=== PATIENT | male | born 2000 | race Hispanic/Latino ===

== ENCOUNTER 2023-11-29 12:59 | Emergency (ER) | payer SELFPAY ==
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
[2023-11-29 13:32] LABS: Absolute Lymphocytes (CBC) 1.3 K/uL (0.7-4.9); Absolute Monocytes 0.5 K/uL (0.1-1.3); Absolute Neutrophil 8.4 K/uL (1.8-8.0); Basophils % 0.4 % (0-1.3); Eosinophils % 0.4 % (0-4.4); Hematocrit 47.9 % (39.6-49.0); Hemoglobin 16.4 g/dL (13.6-17.9); Lymphocytes % 12.4 % (15.3-44.8); MCH 30.7 pg (27.0-35.0); MCHC 34.2 g/dL (32.0-36.0); MCV 89.6 fL (80-100); MPV 6.7 fL (7.6-11.3); Monocytes % 4.7 % (3.3-12.3); Neutrophils % 82.1 % (41.7-73.7); Nucleated Red Blood Cells % 0.1 % (0-0); Platelets 335 thou/uL (152-406); RBC Red Blood Cell Count 5.34 M/uL (4.33-5.43); Red Cell Distribution Width 12.7 % (12.1-15.2)
[2023-11-29 13:39] LABS: PT Prothrombin Time 12.1 SECONDS (9.4-12.5); PTT, Activated Partial Thromb 41.4 SECONDS (24.3-36.9); Protime INR 1.08
[2023-11-29 14:02] LABS: Barbiturates NEGATIVE (NEGATIVE); Benzodiazepines NEGATIVE (NEGATIVE); Cocaine NEGATIVE (NEGATIVE); METHAMPHETAM NEGATIVE (NEGATIVE); Methadone NEGATIVE (NEGATIVE); Opiates NEGATIVE (NEGATIVE); Phencyclidine NEGATIVE (NEGATIVE); THC Cannibis NEGATIVE (NEGATIVE)
[2023-11-29 14:02] LABS: ALT/SGPT 56 U/L (16-61); AST/SGOT 30 U/L (15-37); Albumin 4.2 g/dL (3.4-5.0); Alkaline Phosphatase 97 U/L (45-117); Anion Gap 8.2 mEq/L (5.0-15.0); BUN Blood Urea Nitrogen 12 mg/dL (7-18); Bicarbonate 28 mEq/L (21-32); Bilirubin Direct 0.2 mg/dL (0-0.2); Bilirubin Indirect, Calculated 0.4 mg/dL (0.2-0.8); Bilirubin Total 0.6 mg/dL (0.2-1.0); Globulin 4.1 g/dL (2.3-3.5); Glomerular Filtration Rate 118 ml/min (=/>90); Glucose Level 78 mg/dL (74-106); Potassium 4.2 mEq/L (3.5-5.1); Protein, Total 8.3 g/dL (6.4-8.2); Sodium Level 137 mEq/L (136-145)
--- NOTE | 2023-11-29 15:13 | EDPHYS ---
Physician Documentation [facility] Name: Carson Munson Age: 23 yrs Sex: Male : 2000 Arrival Date: 11/29/2023 Time: 12:59 Bed 20 Private MD: ED Physician Quinn Thomas HPI: 11/28 13:52 This 23 yrs old Male presents to ER via EMS with complaints of Mental kb Evaluation. 13:52 Patient is a 23-year-old male who presents for racing thoughts, paranoia and sense of kb hopelessness that started yesterday. States he is on Prozac to manage the symptoms and it works unless his father is present. States his father is a trigger for his symptoms. States he ran away yesterday and stayed in an apartment that he should not have been. States PD found him trespassing at the apartment, called his dad and his symptoms progressed so the officers recommended he come to the ER for mental evaluation. Patient denies any suicidal or homicidal ideations. Patient request inpatient treatment because he just wants to get better. EMS reports pt stated "i'd rather than go with my dad" on scene.. Historical: - Allergies: 13:09 No Known Allergies; iw - Home Meds: 13:09 Prozac Oral daily [Active]; iw - Immunization history:: Adult Immunizations up to date. - Infectious Disease History:: Denies. - Social history:: Smoking status: Patient/guardian denies using. ROS: 13:54 Constitutional: As per HPI kb Exam: 13:54 Constitutional: This is a well developed, well nourished patient who is awake, alert, kb and in no acute distress. Head/Face: Normocephalic, atraumatic. ENT: Moist Mucous membranes Cardiovascular: Regular rate Respiratory: Respirations even and unlabored. No increased work of breathing. Talking in full sentences Abdomen/GI: Soft, non-tender. No distention Skin: Warm, dry with normal turgor. Normal color. MS/ Extremity: Pulses equal, no cyanosis. Neurovascular intact. Full, normal range of motion. Neuro: Awake and alert, GCS 15, oriented to person, place, time, and situation. Moves all extremities. Normal gait. 13:54 Psych: Behavior/mood is cooperative, anxious, Affect is animated, Oriented to person, place, time, Patient has no thoughts/intents to harm self or others. 14:31 ECG was reviewed by the Attending Physician. kb Vital Signs: 13:07 BP 134 / 78; Pulse 104; Resp 16; Temp 98.2(TE); Pulse Ox 100% on R/A; iw 14:22 BP 122 / 78; Pulse 84; Resp 16; Pulse Ox 96% on R/A; iw MDM: 13:02 Patient medically screened. kb 13:54 Differential diagnosis: acute stress reaction, psychosis, anxiety, depression. Data kb reviewed: vital signs, nurses notes. Historians other than the Patient: EMS: [facility]. 15:38 Management of patient was discussed with the following: Behavioral Health Provider: ezequiel harden screener recommends outpatient treatment. Counseling: I had a detailed discussion with the patient and/or guardian regarding the historical points, exam findings, and any diagnostic results supporting the discharge/admit diagnosis, lab results, the need for outpatient follow up, a psychiatrist, to return to the emergency department if symptoms worsen or persist or if there are any questions or concerns that arise at home. ED course: Pt continues to deny SI/HI ideations. States he thought he wanted to go inpatient when he first got here, but now believes he should continue with outpatient treatment. Mj Harden agrees. Pt is an established pt with Mj Harden and will follow up with him. 11/28 13:17 Order name: Acetaminophen; Complete Time: 14:06 kb 11/28 13:17 Order name: Basic Metabolic Panel; Complete Time: 14:06 kb 11/28 13:17 Order name: CBC with Diff; Complete Time: 13:51 kb 11/28 13:17 Order name: ETOH Level; Complete Time: 13:51 kb 11/28 13:17 Order name: Hepatic Function; Complete Time: 14:06 kb 11/28 13:17 Order name: PT-INR; Complete Time: 13:51 kb 11/28 13:17 Order name: Ptt, Activated; Complete Time: 13:51 kb 11/28 13:17 Order name: Salicylate; Complete Time: 14:17 kb 11/28 13:17 Order name: Urine Drug Screen; Complete Time: 14:06 kb 11/28 13:17 Order name: EKG - Nurse/Tech; Complete Time: 14:30 kb 11/28 13:17 Order name: IV Saline Lock; Complete Time: 13:26 kb 11/28 13:17 Order name: Labs collected and sent; Complete Time: 13:26 kb 11/28 13:17 Order name: Suicide Screening (Steve); Complete Time: 13:51 kb 11/28 14:17 Order name: Vital Signs; Complete Time: 14:30 kb EC:31 Rate is 95 beats/min. Rhythm is regular. QRS [place] is Normal. NM interval is normal at kb 126 msec. QRS interval is normal at 78 msec. QT interval is normal at 444 msec. Administered Medications: No medications were administered Disposition: 17:53 I was immediately available on-site in the Emergency Department for consultation in the ms3 care of the patient. Disposition Summary: 11/29/23 15:38 Discharge Ordered Notes: Location: Home kb Condition: Stable(11/29/23 15:38) kb Diagnosis - Acute stress reaction(11/29/23 15:38) kb Followup: kb - With: Emergency Department - When: As needed - Reason: Worsening of condition Followup: kb - With: Private Physician - When: 2 - 3 days - Reason: Recheck today's complaints, Continuance of care, Re-evaluation by your physician Discharge Instructions: - Discharge Summary Sheet kb - Stress, Adult kb Forms: - Medication Reconciliation Form kb - Antibiotic Education kb - Prescription Opioid Use kb - Patient Portal Instructions kb - Leadership Thank You Letter kb Signatures: Dispatcher [employer] EDLeticia Lozoya, CHARLEENC OUTBOUND SALES SPECIALIST-Lupis Iyer RN RN iw Sims, Marcus, DO DO ms3 Jessica Pratt RN RN mb9 Corrections: (The following items were deleted from the chart) 14:32 13:52 Patient is a 23-year-old male who presents for racing thoughts, paranoia and kb sense of hopelessness that started yesterday. States he is on Prozac to manage the symptoms and it works unless his father is present. States his father is a trigger for his symptoms. States he ran away yesterday and stayed in an apartment that he should not have been. States PD found him trespassing at the apartment, called his dad and his symptoms progressed so the officers recommended he come to the ER for mental evaluation. Patient denies any suicidal or homicidal ideations. Patient request inpatient treatment because he just wants to get better. kb :38 15:12 Dr kb kb : 15:12 Psych Facility kb kb : 15:12 Higher level of care kb kb : 15:12 Stable kb kb : 15:12 new kb kb : 15:12 are unchanged kb kb : 15:12 Acute stress reaction kb kb
--- NOTE | 2023-11-29 15:13 | ER ---
Nurse's Notes [facility] Name: Carson Munson Age: 23 yrs Sex: Male : 2000 Arrival Date: 11/29/2023 Time: 12:59 Bed 20 Private MD: Diagnosis: Acute stress reaction Presentation: 11/28 13:07 Chief complaint:. Chief complaint: EMS states: pt was having some family issues at home iw and wanted to come get some help, pt denies SI or HI. Coronavirus screen: At this time, the client does not indicate any symptoms associated with coronavirus-19. Ebola Screen: No symptoms or risks identified at this time. Initial Sepsis Screen: Does the patient meet any 2 criteria? No. Patient's initial sepsis screen is negative. Does the patient have a suspected source of infection? No. Patient's initial sepsis screen is negative. Risk Assessment: Do you want to hurt yourself or someone else? Patient reports no desire to harm self or others. Onset of symptoms was November 29, 2023. 13:07 Method Of Arrival: EMS: [facility] iw 13:07 Acuity: SHEREEN 3 iw Historical: - Allergies: 13:09 No Known Allergies; iw - Home Meds: 13:09 Prozac Oral daily [Active]; iw - Immunization history:: Adult Immunizations up to date. - Infectious Disease History:: Denies. - Social history:: Smoking status: Patient/guardian denies using. Screenin:57 [facility] ED Fall Risk Assessment (Adult) History of falling in the last 3 months, mb9 including since admission No falls in past 3 months (0 pts) Confusion or Disorientation No (0 pts) Intoxicated or Sedated No (0 pts) Impaired Gait No (0 pts) Mobility Assist Device Used No (0 pt) Altered Elimination No (0 pt) Score/Fall Risk Level 0 - 2 = Low Risk Oriented to surroundings, Maintained a safe environment, Educated pt \T\ family on fall prevention, incl call for assistance when getting out of bed. Abuse screen: Denies threats or abuse. Nutritional screening: No deficits noted. Tuberculosis screening: No symptoms or risk factors identified. Assessment: 13:28 General: Appears in no apparent distress. Behavior is calm, cooperative. Neuro: Level iw of Consciousness is awake, alert, obeys commands, Oriented to person, place, time, situation. 15:57 Reassessment: pt denies HI and SI. Pt given discharge plan paperwork as resource. mb9 Vital Signs: 13:07 BP 134 / 78; Pulse 104; Resp 16; Temp 98.2(TE); Pulse Ox 100% on R/A; iw 14:22 BP 122 / 78; Pulse 84; Resp 16; Pulse Ox 96% on R/A; iw ED Course: 13:02 Patient arrived in ED. bd 13:02 Leticia Forte FNP-C is PHCP. kb 13:02 Quinn Thomas DO is Attending Physician. kb 13:08 Triage completed. iw 13:10 Arm band placed on. iw 13:26 Acetaminophen Sent. bc6 13:26 Basic Metabolic Panel Sent. bc6 13:26 CBC with Diff Sent. bc6 13:26 ETOH Level Sent. bc6 13:26 Hepatic Function Sent. bc6 13:26 PT-INR Sent. bc6 13:26 Ptt, Activated Sent. bc6 13:26 Salicylate Sent. bc6 13:26 Initial lab(s) drawn, by me, sent to lab. Inserted saline lock: 20 gauge in right bc6 antecubital area, using aseptic technique. Blood collected. Flushed with 10 mL NS. 13:38 Urine collected: clean catch specimen, bernice colored. tm3 13:51 Lupis Ansari, RN is Primary Nurse. iw 14:31 contacted [facility] to have a screener evaluate pt. bd 14:41 spoke with julissa from [facility] informed me she was on her way from [facility]. bc6 15:51 No provider procedures requiring assistance completed. IV discontinued, intact, iw bleeding controlled, No redness/swelling at site. Pressure dressing applied. Administered Medications: No medications were administered Medication: 13:28 VIS not applicable for this client. iw Outcome: 15:12 ER care complete, transfer ordered by . kb 15:38 Discharge ordered by . kb 15:50 Discharged to home ambulatory, iw 15:50 Condition: stable 15:50 Discharge instructions given to patient, Instructed on discharge instructions, follow up and referral plans. Demonstrated understanding of instructions, follow-up care, 15:58 Patient left the ED. mb9 Signatures: Leticia Forte FNP-C SCIENTIFIC PROGRAMMER ANALYST-Yaneth Pearl Toni tm3 Lupis Ansari, RN RN iw Santa, Jessica Alicia RN RN mb9 Carole Ragsdale 6 Corrections: (The following items were deleted from the chart) 13:53 13:07 BP 134 / 78; Pulse 104bpm; Resp 16bpm; Pulse Ox 100% RA; iw delisa
[2023-11-29 16:18] VITALS: TEMP 98.2
[2023-11-29 16:19] VITALS: BP 122/78; O2SAT 96
--- NOTE | 2023-12-01 12:58 | EKG ---
Test Date: 2023-11-29 Test Time: 14:29:15 [employer]: DOROTEO MEASUREMENT RESULTS: Intervals: Rate: 95 ND: 126 QRSD: 78 QT: 354 QTc: 444 [place]: P: 72 ND: 126 QRS: 79 T: 60 INTERPRETIVE STATEMENTS: Normal sinus rhythm Right atrial enlargement Borderline ECG No previous ECG available for comparison Electronically Signed On 12-01-23 12:55:45 CDT by [place]
== END 2023-11-29 15:58 | disposition home or self-care (01) ==
LOC: ER 12:59
DX: F43.0 Acute stress reaction (principal)
CPT/HCPCS: 36415; 80048; 80076; 80143; 80179; 80307; 82077; 85025; 85610; 85730; 93005; 99284